=== PATIENT | female | born 1990 | race Hispanic/Latino ===

== ENCOUNTER 2019-01-18 09:33 | Emergency (ER) | payer SELFPAY | END 2019-01-18 10:13 | disposition home or self-care (01) | LOC: ERS 09:33 | DX: F41.9 Anxiety disorder, unspecified (principal) | CPT/HCPCS: 93005 ==

== ENCOUNTER 2021-02-14 10:14 | Outpatient (CLI) | payer OTHER | END 2021-02-14 10:15 | disposition home or self-care (01) | LOC: BICRAD 10:14 | PROVIDERS: ATTEND Student in an Organized Health Care Education/Training Program | DX: M54.2 Cervicalgia (principal) | CPT/HCPCS: 72050 ==